=== PATIENT | female | born 1995 | race Caucasian/White ===

== ENCOUNTER 2018-02-27 15:38 | Emergency (ER) | payer BC ==
[2018-02-27 15:58] VITALS: BP 130/75
--- NOTE | 2018-02-27 16:05 | UC ---
UC General HPI - HPI Summary HPI Summary: SORE THROAT, HEADACHE AND SUBJECTIVE FEVER SINCE LAST PM. TX IB AND DAYQUIL. - History of Current Complaint Chief Complaint: UCRespiratory Stated Complaint: SORE THROAT,HEADACHE Time Seen by Provider: 02/27/18 15:57 Hx Obtained From: Patient Hx Last Menstrual Period: on bcp and nexplanon Onset/Duration: Gradual Onset Timing: Constant Pain Intensity: 5 - Allergy/Home Medications Allergies/Adverse Reactions: Allergies Allergy/AdvReac Type Severity Reaction Status Date / Time No Known Allergies Allergy Verified 02/27/18 15:53 Home Medications: Home Medications Etonogestrel [Nexplanon] 1 implant ONCE 02/27/18 [History Confirmed 02/27/18] Norgestrel-Ethinyl Estradiol [[id number] Tablet] 1 tab DAILY 02/27/18 [ History Confirmed 02/27/18] PMH/Surg Hx/FS Hx/Imm Hx - Additional Past Medical History Additional PMH: allergies, lyme dz, strep throat - Surgical History Surgical History: Yes Surgery Procedure, Year, and Place: wisdom teeth - Family History Known Family History: Positive: Hypertension - both parents, Other Family History: Malathi's thyroiditis: mother, sister, aunt. - Social History Occupation: Student Lives: Dormitory/Roommates Alcohol Use: Occasionally Substance Use Type: None Smoking Status (MU): Former Smoker Type: eCigarettes Amount Used/How Often: 1 cartridge/wk - Immunization History Vaccination Up to Date: Yes Review of Systems All Other Systems Reviewed And Are Negative: Yes Constitutional: Positive: Fever Skin: Positive: Negative Eyes: Positive: Negative ENT: Positive: Sore Throat Respiratory: Positive: Negative Cardiovascular: Positive: Negative Gastrointestinal: Positive: Negative Genitourinary: Positive: Negative Motor: Positive: Negative Neurovascular: Positive: Negative Musculoskeletal: Positive: Negative Neurological: Positive: Headache Psychological: Positive: Negative Is Patient Immunocompromised?: No Physical Exam Triage Information Reviewed: Yes Appearance: Well-Appearing Vital Signs: Initial Vital Signs Temp 98.5 F 02/27/18 15:55 Pulse 98 02/27/18 15:55 Resp 15 02/27/18 15:55 BP 130/75 02/27/18 15:55 Pulse Ox 100 02/27/18 15:55 Vital Signs Reviewed: Yes Eyes: Positive: Conjunctiva Clear ENT: Positive: Pharyngeal erythema, TMs normal, Tonsillar swelling - mild, Uvula midline. Negative: Nasal congestion, Nasal drainage, Tonsillar exudate, Trismus, Muffled voice, Hoarse voice Neck: Positive: Supple, Tenderness @ - peritonsilar nodes that are enlarged. Respiratory: Positive: Lungs clear, Normal breath sounds Cardiovascular: Positive: RRR, No Murmur Abdomen Description: Positive: Nontender, No Organomegaly, Soft Bowel Sounds: Positive: Present Musculoskeletal: Positive: ROM Intact Neurological: Positive: Alert Psychological: Positive: Age Appropriate Behavior Skin Exam: Normal Diagnostics - Laboratory Diagnostic Studies Completed/Ordered: rapid strep=neg. Course/Dx - Course Course Of Treatment: rapid strep=neg. tx supportive. - Diagnoses Provider Diagnosis: Pharyngitis Discharge - Sign-Out/Discharge Documenting (check all that apply): Patient Departure All imaging exams completed and their final reports reviewed: No Studies - Discharge Plan Condition: Stable Disposition: HOME Patient Education Materials: Pharyngitis (ED) Referrals: No Primary Care Phys,NOPCP [Primary Care Provider] - [facility] [Outside] Additional Instructions: follow up [facility] if not better in 5 days or sooner if worse. - Billing Disposition and Condition Condition: STABLE Disposition: Home - Attestation Statements Provider Attestation: Per institutional requirements, I have reviewed the chart, however, I was not consulted specifically or made aware of this patient by the midlevel provider. I did not personally evaluate, interact with , or disposition this patient.
== END 2018-02-27 16:20 | disposition home or self-care (01) ==
LOC: UCCORT 15:38
DX: J02.9 Acute pharyngitis, unspecified (principal); Z87.891 Personal history of nicotine dependence
CPT/HCPCS: 87651; 99211; G0463

== ENCOUNTER 2018-02-27 21:44 | Emergency (ER) | payer BC ==
[2018-02-27 21:53] VITALS: BP 145/63
--- NOTE | 2018-02-27 22:06 | UC ---
Throat Pain/Nasal Alfredo HPI - HPI Summary HPI Summary: The patient is a 22-year-old female with sore throat fever and chills times about 24 hours. She was seen here earlier today and a negative strep test. She returns here requesting a repeat strep test because of her worsening symptoms. She has been able to take liquids by mouth. She has had strep throat twice in the past 3 months. - History of Current Complaint Chief Complaint: UCGeneralIllness Stated Complaint: SORE THROAT Time Seen by Provider: 02/27/18 21:49 Hx Obtained From: Patient Hx Last Menstrual Period: CONTINUOUS CONTROL Onset/Duration: Gradual Onset, Lasting Hours Severity: Moderate Pain Intensity: 6 Pain Scale Used: 0-10 Numeric Cough: None Associated Signs & Symptoms: Positive: Fever - Epiglottits Risk Factors Epiglottis Risk Factors: Negative - Allergies/Home Medications Allergies/Adverse Reactions: Allergies Allergy/AdvReac Type Severity Reaction Status Date / Time No Known Allergies Allergy Verified 02/27/18 15:53 Home Medications: Home Medications Acetaminophen [APAP] 1,000 mg PO ONCE 02/27/18 [History Confirmed 02/27/18] Ibuprofen 800 mg PO ONCE 02/27/18 [History Confirmed 02/27/18] PMH/Surg Hx/FS Hx/Imm Hx Previously Healthy: Yes - Surgical History Surgical History: Yes Surgery Procedure, Year, and Place: wisdom teeth - Family History Known Family History: Positive: Hypertension - both parents, Other - dyslipidemia Family History: Malathi's thyroiditis: mother, sister, aunt. - Social History Alcohol Use: Occasionally Substance Use Type: None Smoking Status (MU): Former Smoker Type: eCigarettes Amount Used/How Often: 1 cartridge/wk - Immunization History Vaccination Up to Date: Yes Review of Systems All Other Systems Reviewed And Are Negative: Yes Constitutional: Positive: Fever, Chills Skin: Positive: Negative Eyes: Positive: Negative ENT: Positive: Sore Throat Respiratory: Positive: Negative Cardiovascular: Positive: Negative Gastrointestinal: Positive: Negative Genitourinary: Positive: Negative Motor: Positive: Negative Neurovascular: Positive: Negative Musculoskeletal: Positive: Negative Neurological: Positive: Negative Psychological: Positive: Negative Physical Exam Triage Information Reviewed: Yes Appearance: Well-Appearing, No Pain Distress, Well-Nourished Vital Signs: Initial Vital Signs Temp 98.1 F 02/27/18 21:50 Pulse 128 12/08/18 21:50 Resp 20 02/27/18 21:50 BP 145/63 02/27/18 21:50 Pulse Ox 99 02/27/18 21:50 Vital Signs Reviewed: Yes Eyes: Positive: Conjunctiva Clear ENT: Positive: Pharyngeal erythema, Tonsillar swelling, Uvula midline. Negative : Nasal congestion, Nasal drainage, Tonsillar exudate, Trismus, Muffled voice, Hoarse voice Neck: Positive: Supple, Enlarged Nodes @ - ant cervical nodes Respiratory: Positive: Lungs clear, Normal breath sounds, No respiratory distress, No accessory muscle use Cardiovascular: Positive: RRR, No Murmur Abdomen Description: Positive: Nontender, No Organomegaly. Negative: CVA Tenderness (R), CVA Tenderness (L), Splenomegaly Musculoskeletal: Positive: ROM Intact, No Edema Neurological: Positive: Alert Psychological Exam: Normal Skin Exam: Normal Diagnostics - Laboratory Diagnostic Studies Completed/Ordered: strep (-) Throat Pain/Nasal Course/Dx - Differential Dx/Diagnosis Provider Diagnosis: Tonsillitis Discharge - Sign-Out/Discharge Documenting (check all that apply): Patient Departure All imaging exams completed and their final reports reviewed: No Studies - Discharge Plan Condition: Stable Disposition: HOME Patient Education Materials: Tonsillitis (ED) Referrals: No Primary Care Phys,NOPCP [Primary Care Provider] - Additional Instructions: your strep test was negative a culture is pending rest fluids recheck for worsening symptoms recheck in 2-3 days if not better - Billing Disposition and Condition Condition: STABLE Disposition: Home
== END 2018-02-27 22:10 | disposition home or self-care (01) ==
LOC: UCCORT 21:44
DX: J03.90 Acute tonsillitis, unspecified (principal); Z87.891 Personal history of nicotine dependence
CPT/HCPCS: 87070; 87651; 99211; G0463

== ENCOUNTER 2018-02-28 08:13 | Emergency (ER) | payer BC ==
[2018-02-28 08:32] VITALS: BP 142/63
--- NOTE | 2018-02-28 09:06 | UC ---
Throat Pain/Nasal Lafredo HPI - HPI Summary HPI Summary: Pt c/o worsening, ST, malaise, subjective fever, pain with swallowing. Pt has had ST X 2 days. Pt was seen yesterday and had negative rapid strep tests. - History of Current Complaint Chief Complaint: UCGeneralIllness Stated Complaint: SORE THROAT Time Seen by Provider: 02/28/18 08:33 Hx Obtained From: Patient Hx Last Menstrual Period: Implanon and BCP (was spotting) ?: No Onset/Duration: Sudden Onset, Lasting Days, Still Present, Worse Since Severity: Severe Pain Intensity: 8 Pain Scale Used: 0-10 Numeric Cough: None Associated Signs & Symptoms: Positive: Dysphagia, Sinus Discomfort, Nasal Discharge - Epiglottits Risk Factors Epiglottis Risk Factors: Sudden Onset - Allergies/Home Medications Allergies/Adverse Reactions: Allergies Allergy/AdvReac Type Severity Reaction Status Date / Time No Known Allergies Allergy Verified 02/28/18 08:26 Home Medications: Home Medications Acetaminophen [Acetaminophen Extra Strength] 1,000 mg PO Q6H PRN 02/28/18 [ History Confirmed 02/28/18] Dextromethorphan/Benzocaine [Cepacol Sorethroat-Cough Sarah] 1 each MT Q2H PRN 12/08 [History Confirmed 02/28/18] Ibuprofen TAB* [Advil TAB*] 800 mg PO Q6H PRN 02/28/18 [History Confirmed ] PMH/Surg Hx/FS Hx/Imm Hx Previously Healthy: Yes - Surgical History Surgical History: Yes Surgery Procedure, Year, and Place: wisdom teeth - Family History Known Family History: Positive: Hypertension - both parents, Other - dyslipidemia Family History: Malathi's thyroiditis: mother, sister, aunt. - Social History Occupation: Student Lives: Dormitory/Roommates Alcohol Use: Occasionally Substance Use Type: None Smoking Status (MU): Never Smoked Tobacco Type: eCigarettes Amount Used/How Often: 1 cartridge/wk Have You Smoked in the Last Year: Yes - ecigarettes - Immunization History Vaccination Up to Date: Yes Review of Systems All Other Systems Reviewed And Are Negative: Yes Constitutional: Positive: Fever, Chills, Fatigue Skin: Positive: Negative Eyes: Positive: Negative ENT: Positive: Sore Throat, Sinus Congestion Respiratory: Positive: Negative Cardiovascular: Positive: Negative Gastrointestinal: Positive: Negative Genitourinary: Positive: Negative Motor: Positive: Negative Neurovascular: Positive: Negative Musculoskeletal: Positive: Myalgia Neurological: Positive: Negative Psychological: Positive: Negative Is Patient Immunocompromised?: No Physical Exam Triage Information Reviewed: Yes Appearance: Ill-Appearing Vital Signs: Initial Vital Signs Temp 99.6 F 02/28/18 08:24 Pulse 115 02/28/18 08:24 Resp 16 02/28/18 08:24 BP 142/63 02/28/18 08:24 Pulse Ox 100 02/28/18 08:24 Vital Signs Reviewed: Yes Eye Exam: Normal ENT: Positive: Tonsillar swelling, Tonsillar exudate, Other Dental Exam: Normal Neck: Positive: Tenderness @ - bilateral submaxillary, Enlarged Nodes @ Respiratory Exam: Normal Cardiovascular Exam: Normal Musculoskeletal Exam: Normal Neurological Exam: Normal Psychological Exam: Normal Skin Exam: Normal Throat Pain/Nasal Course/Dx - Differential Dx/Diagnosis Differential Diagnosis/HQI/PQRI: Mononucleosis, Pharyngitis, Tonsillitis Provider Diagnosis: Tonsillitis with exudate Discharge - Sign-Out/Discharge Documenting (check all that apply): Patient Departure All imaging exams completed and their final reports reviewed: No Studies - Discharge Plan Condition: Stable Disposition: HOME Prescriptions: Fluconazole 150 MG TAB* [Diflucan 150 MG TAB*] 150 mg PO UC ONCE #2 tablet Penicillin VK 500 MG TAB(NF) [Penicillin VK 500 mg Tab] 500 mg PO QID #40 tab predniSONE TAB* [Deltasone 10 MG TAB*] 30 mg PO DAILY #12 tab Patient Education Materials: Tonsillitis (ED) Referrals: [facility] [Outside] - If Needed No Primary Care Phys,NOPCP [Primary Care Provider] - - Billing Disposition and Condition Condition: STABLE Disposition: Home
[2018-02-28 14:34] LABS: ABS Basophils 0 10^3/ul (0-0.2); ABS Eosinophils 0 10^3/ul (0-0.6); ABS Lymphocytes 2.1 10^3/ul (1.0-4.8); ABS Monocytes 1.5 10^3/ul (0-0.8); ABS Neutrophils 14.2 10^3/ul (1.5-7.7); ABS Nucleated RBC 0 10^3/ul; Eosinophil % 0.1 %; Hematocrit 38 % (35-47); Hemoglobin 12.6 g/dl (12.0-16.0); Lymphocyte % 11.7 %; Mean Corpuscular HGB Conc 34 g/dl (31-36); Mean Corpuscular Hemoglobin 30 pg (27-31); Mean Corpuscular Volume 89 fL (80-97); Mean Platelet Volume 9.5 fL (7.4-10.4); Nucleated Red Blood Cells % 0; Platelet Count 161 10^3/ul (150-450); Red Blood Count 4.24 10^6/ul (4.00-5.40); Red Cell Distribution Width 15 % (10.5-15); White Blood Count 17.8 10^3/ul (3.5-10.8)
--- NOTE | 2018-02-28 18:45 | UC ---
- Progress Note Progress Note: I CALLED AND SPOKE WITH PATIENT. NAME AND DATE OF VERIFIED. PATIENT STATES SHE IS FEELING A LOT BETTER NOW THAN SHE WAS THIS MORNING. HAS BEEN TAKING HER ANTIBIOTICS AND THE PREDNISONE. ADVISED THAT MONO TEST IS POSITIVE. I ALSO ADVISED THAT CBC SHOWED AN ELEVATED WHITE BLOOD CELL COUNT AND ELEVATED ABSOLUTE NEUTROPHIL COUNT WHICH MAY INDICATE A CONCURRENT BACTERIAL INFECTION. PATIENT IS TO CONTINUE TAKING HER PENICILLIN. ADVISED SHE RECHECK HER CBC IN THE NEXT 1-2 DAYS. STATES SHE WILL GO TO [employer]. - JENNIFER ROBERTSON MD Course/Dx - Diagnoses Provider Diagnoses: Tonsillitis with exudate Discharge - Sign-Out/Discharge Documenting (check all that apply): Post-Discharge Follow Up All imaging exams completed and their final reports reviewed: No Studies - Discharge Plan Condition: Stable Disposition: HOME Prescriptions: Fluconazole 150 MG TAB* [Diflucan 150 MG TAB*] 150 mg PO UC ONCE #2 tablet Penicillin VK 500 MG TAB(NF) [Penicillin VK 500 mg Tab] 500 mg PO QID #40 tab predniSONE TAB* [Deltasone 10 MG TAB*] 30 mg PO DAILY #12 tab Patient Education Materials: Tonsillitis (ED) Referrals: [facility] [Outside] - If Needed No Primary Care Phys,NOPCP [Primary Care Provider] - - Billing Disposition and Condition Condition: STABLE Disposition: Home
== END 2018-02-28 08:58 | disposition home or self-care (01) ==
LOC: UCCORT 08:13
DX: J03.90 Acute tonsillitis, unspecified (principal); F17.290 Nicotine dependence, other tobacco product, uncomplicated
CPT/HCPCS: 36415; 85025; 86308; 99212; G0463